=== PATIENT | female | born 1940 | race Two or more races ===

== ENCOUNTER 2018-01-30 08:20 | Emergency (ER) | payer MEDICAID ==
[~2018-01-30] VITALS: Ht 165.1 cm; Wt 55.8 kg
--- NOTE | 2018-01-30 11:16 | NUR ---
CALLED [facility] FOR TRANSPORT ETA 30MIN
--- NOTE | 2018-01-30 12:17 | NUR ---
[facility]
[2018-01-30 12:20] VITALS: BP 123/67
== END 2018-01-30 12:21 | disposition home or self-care (01) ==
LOC: ER 08:20
DX: S00.12XA Contusion of left eyelid and periocular area, initial encounter (principal); I25.10 Atherosclerotic heart disease of native coronary artery without angina pectoris; I13.0 Hypertensive heart and chronic kidney disease with heart failure and stage 1 through stage 4 chronic kidney disease, or unspecified chronic kidney disease; N18.9 Chronic kidney disease, unspecified; R41.82 Altered mental status, unspecified; F31.9 Bipolar disorder, unspecified; E87.6 Hypokalemia; G47.00 Insomnia, unspecified; W18.30XA Fall on same level, unspecified, initial encounter; Y92.002 Bathroom of unspecified non-institutional (private) residence as the place of occurrence of the external cause; Y93.89 Activity, other specified; Y99.8 Other external cause status
CPT/HCPCS: 70450; 70486; 71045; 72125; 72170; 73630; 99284; A4606; Z7610

== ENCOUNTER 2022-10-27 00:44 | Emergency (ER) | payer MEDICAID, OTHER ==
[~2022-10-27] VITALS: Ht 162.6 cm; Wt 72.6 kg
[2022-10-27 00:51] VITALS: BP 133/79
--- NOTE | 2022-10-27 00:57 | NUR ---
[facility] FROM [facility] C/O "DIFFICULT TO WAKE UP" PT WAKES UP TO PAIN STIMULI PT A/OX.1 AT BASELINE. TOLERATING R/A WELL WITH NO RESP DISTRESS. SAFETY MEASURES IN PLACE.
--- NOTE | 2022-10-27 00:58 | NUR ---
EMT AT PT'S BEDSIDE FOR EKG
--- NOTE | 2022-10-27 01:10 | NUR ---
PATIENT SUPPORT ASSISTANT AT PT'S BEDSIDE
--- NOTE | 2022-10-27 01:14 | NUR ---
[employer] M[employer] OPERATOR AT PT'S BEDSIDE
[2022-10-27 01:22] LABS: BASOPHILS % (AUTO) 0.6 % (0.0-2.0); HEMATOCRIT 37 % (33-45); LYMPHOCYTES % (AUTO) 29.3 % (20.0-44.0); MEAN CORPUSCULAR HGB CONC 33 g/dl (31.0-36.0); MEAN CORPUSCULAR VOLUME 91 fL (82-100); MONOCYTES # (AUTO) 0.7 K/uL (0.1-1.30); MONOCYTES % (AUTO) 10.3 % (2.0-12.0); NEUTROPHILS # (AUTO) 3.9 K/uL (1.8-8.9); NEUTROPHILS % (AUTO) 56.8 % (43.0-81.0); PLATELET COUNT (AUTO) 265 K/uL (150-450); RED BLOOD CELL COUNT(AUTO) 4.02 MIL/uL (4.0-5.2); WHITE BLOOD COUNT (AUTO) 6.9 K/uL (4.3-11.0)
[2022-10-27 01:32] LABS: CALCIUM, SERUM 8.8 mg/dL (8.5-10.1); CREATININE 0.9 mg/dL (0.6-1.3); POTASSIUM 4.2 mmol/L (3.5-5.1)
[2022-10-27 01:39] LABS: ALBUMIN 2.8 g/dL (3.4-5.0); BILIRUBIN,TOTAL 0.2 mg/dL (0.2-1.0); TOTAL PROTEIN, SERUM 7.1 g/dL (6.4-8.2)
--- NOTE | 2022-10-27 01:42 | NUR ---
URINE COLLECTED AND SENT TO LAB
[2022-10-27 02:24] LABS: BILIRUBIN,URINE NEGATIVE (NEGATIVE); COLOR,URINE YELLOW (YELLOW); LEUKOCYTE ESTERASE ,URINE TRACE (NEGATIVE); NITRITE, URINE NEGATIVE (NEGATIVE); PROTEIN,URINE NEGATIVE (NEGATIVE); UGLUCOSE NEGATIVE (NEGATIVE); UROBILINOGEN,URINE 0.2 EU/dL (0.2)
[2022-10-27 02:39] LABS: BACTERIA,URINE Rare /HPF (None Seen); SQUAMOUS EPITHELIAL CELL,UR Few /HPF (None Seen); WBC,URINE 0-2 /HPF (0-3)
--- NOTE | 2022-10-27 03:13 | NUR ---
[employer] FERRY DRIVER AT PT'S BEDSIDE
--- NOTE | 2022-10-27 04:25 | NUR ---
REPORT GIVEN TO DONATO SONG [facility]
--- NOTE | 2022-10-27 04:25 | NUR ---
[facility] CALLED FOR BLS GOING BACK TO SNF PER [facility] ETA 30 MIN
--- NOTE | 2022-10-27 04:47 | NUR ---
REPORT GIVEN TO [facility] UNIT FOR SY[facility]; [facility] EMT AT PT'S BEDSIDE FOR [facility] TO TRANSFER TO [facility].
== END 2022-10-27 04:59 ==
LOC: ER 01:00
DX: F11.90 Opioid use, unspecified, uncomplicated (principal); I10 Essential (primary) hypertension; I25.10 Atherosclerotic heart disease of native coronary artery without angina pectoris; J44.9 Chronic obstructive pulmonary disease, unspecified; K21.9 Gastro-esophageal reflux disease without esophagitis; F30.9 Manic episode, unspecified; F20.9 Schizophrenia, unspecified; E87.6 Hypokalemia
CPT/HCPCS: 36415; 71045-TC; 80053-TC; 81001; 84484-TC; 85025-TC

== ENCOUNTER 2023-07-11 17:14 | Emergency (ER) | payer OTHER ==
[~2023-07-11] VITALS: Ht 152.4 cm; Wt 61.7 kg
[2023-07-11 18:45] VITALS: BP 153/84; TEMP 98; O2SAT 97
== END 2023-07-11 18:46 ==
LOC: ER 17:17
DX: Z00.00 Encounter for general adult medical examination without abnormal findings (principal); F03.90 Unspecified dementia, unspecified severity, without behavioral disturbance, psychotic disturbance, mood disturbance, and anxiety; I11.0 Hypertensive heart disease with heart failure; I50.9 Heart failure, unspecified; J44.9 Chronic obstructive pulmonary disease, unspecified; K21.9 Gastro-esophageal reflux disease without esophagitis; F32.9 Major depressive disorder, single episode, unspecified; F20.9 Schizophrenia, unspecified

== ENCOUNTER 2023-11-10 06:05 | Inpatient (IN) | payer OTHER ==
[2023-11-10] VITALS (15 sets, daily range): BP systolic 103–199; BP diastolic 67–120; TEMP 97.4–97.7; O2SAT 85–99
[~2023-11-10] VITALS: Ht 154.9 cm; Wt 44.5 kg
[2023-11-10] MEDS ORDERED: PIPERACI/TAZO 3.375GM/D5W 50ML PB IV ONE (06:40)
[2023-11-10] MEDS: PIPERACILLIN /TAZOBACTAM 3.375 G in IV D5W 50 ML IV ONE (06:42)
[2023-11-10] MEDS: IV NS 0.9% 1,000 ML BAG IV ONE (06:42)
[2023-11-10 06:54] LABS: ABG BASE EXCESS 2.9 mmol/L; ABG OXYGEN SATURATION 96.6 % (92.0-98.5); ABG PCO2 51.4 mmHg (35.0-45.0); ABG PH 7.372 (7.350-7.450); ABG PO2 92.4 mmHg (75.0-100.0); ABG TOTAL HEMOGLOBIN 13.5 G/dL (12.0-16.0); MetHb 0.3 % (0.0-1.5); O2Hb 96.3 % (94.0-97.0); SITE, ABG Right Brachial; VENT MODE, BG Nasal Cannula
[2023-11-10 07:58] LABS: APPEARANCE,URINE SLIGHTLY CLOUDY (CLEAR); BILIRUBIN,URINE NEGATIVE (NEGATIVE); BLOOD, URINE TRACE-INTA Ery/uL (NEGATIVE); COLOR,URINE YELLOW (YELLOW); KETONES,URINE TRACE mg/dL (NEGATIVE); LEUKOCYTE ESTERASE ,URINE NEGATIVE (NEGATIVE); NITRITE, URINE NEGATIVE (NEGATIVE); PROTEIN,URINE 1+ mg/dl (NEGATIVE); UGLUCOSE NEGATIVE (NEGATIVE)
[2023-11-10 08:01] LABS: BASOPHILS % (AUTO) 0.2 % (0.0-2.0); HEMATOCRIT 35 % (33-45); HEMOGLOBIN 11.6 g/dL (11.5-14.8); LYMPHOCYTES # (AUTO) 0.8 K/uL (0.8-4.8); LYMPHOCYTES % (AUTO) 7.3 % (20.0-44.0); MEAN CORPUSCULAR HEMOGLOBIN 28 PG (26.0-33.0); MEAN CORPUSCULAR HGB CONC 33 g/dl (31.0-36.0); MEAN CORPUSCULAR VOLUME 86 fL (82-100); MONOCYTES # (AUTO) 1.2 K/uL (0.1-1.30); MONOCYTES % (AUTO) 10.2 % (2.0-12.0); NEUTROPHILS # (AUTO) 9.5 K/uL (1.8-8.9); NEUTROPHILS % (AUTO) 82.3 % (43.0-81.0); PLATELET COUNT (AUTO) 196 K/uL (150-450); RED BLOOD CELL COUNT(AUTO) 4.12 MIL/uL (4.0-5.2); RED CELL DISTRIBUTION WIDTH 17.5 % (11.5-15.0); WHITE BLOOD COUNT (AUTO) 11.5 K/uL (4.3-11.0)
[2023-11-10] MEDS ORDERED: ACETAMINOPHEN 650 MG/SUPP.RECT RC ONE (08:02)
[2023-11-10 08:12] LABS: ADD URINE CULTURE YES; BACTERIA,URINE 1+ /HPF (None Seen); TRICHOMONAS,URINE None Seen /HPF (None Seen); YEAST,URINE None Seen /HPF (None Seen)
[2023-11-10 08:13] LABS: FINE GRANULAR CASTS,URINE Few /LPF (None Seen); MUCUS,URINE Many /LPF (None Seen)
[2023-11-10] MEDS: ACETAMINOPHEN 650 MG/SUPP.RECT RC ONE (08:13)
[2023-11-10 08:14] LABS: INR 1.19 (0.91-1.10); PARTIAL THROMBOPLASTIN TIME 33.4 SEC (24.3-34.3); PROTHROMBIN TIME 12.5 SECS (9.2-11.1)
[2023-11-10] MEDS ORDERED: SENN-18 PO (08:26)
[2023-11-10] MEDS ORDERED: DIVA125C5 PO (08:26)
[2023-11-10] MEDS ORDERED: NITR0.4T48 SL (08:26)
[2023-11-10] MEDS ORDERED: FAMO20TA8 PO (08:26)
[2023-11-10] MEDS ORDERED: QUET25TA PO (08:26)
[2023-11-10] MEDS ORDERED: MONT10TA22 PO (08:26)
[2023-11-10] MEDS ORDERED: CHOL100034 PO (08:26)
[2023-11-10] MEDS ORDERED: METO100T14 PO (08:26)
[2023-11-10] MEDS ORDERED: APIX2.5T PO (08:26)
[2023-11-10] MEDS ORDERED: ACET-868 PO (08:26)
[2023-11-10] MEDS ORDERED: ACET-2605 PO (08:26)
[2023-11-10] MEDS ORDERED: DICL100G34 TP (08:26)
[2023-11-10] MEDS ORDERED: HYDR-4209 PO (08:26)
[2023-11-10] MEDS ORDERED: ATOR10TA PO (08:26)
[2023-11-10] MEDS ORDERED: ISOS30TA9 PO (08:26)
[2023-11-10 08:28] LABS: ALANINE AMINOTRANSFERASE 13 U/L (12-78); ALBUMIN 2.3 g/dL (3.4-5.0); ALKALINE PHOSPHATASE 69 U/L (46-116); ASPARTATE AMINOTRANSFERASE 21 U/L (15-37); BILIRUBIN,DIRECT 0.2 mg/dL (0.0-0.2); BILIRUBIN,TOTAL 0.3 mg/dL (0.2-1.0); CALCIUM, SERUM 7.6 mg/dL (8.5-10.1); CARBON DIOXIDE 29 mmol/L (21-32); CHLORIDE 97 mmol/L (98-107); CREATININE 0.8 mg/dL (0.6-1.3); GLUCOSE 151 mg/dL (74-106); POTASSIUM 3.6 mmol/L (3.5-5.1); SODIUM SERUM 134 mmol/L (136-145); TOTAL PROTEIN, SERUM 6.6 g/dL (6.4-8.2); UREA NITROGEN, BLOOD 15 mg/dL (7-18)
[2023-11-10 08:34] LABS: LACTIC ACID 2.3 mmol/L (0.4-2.0)
[2023-11-10 11:11] LABS: ABG BASE EXCESS 0.3 mmol/L; ABG OXYGEN SATURATION 93.1 % (92.0-98.5); ABG PCO2 76.3 mmHg (35.0-45.0); ABG PH 7.216 (7.350-7.450); ABG PO2 78.8 mmHg (75.0-100.0); ABG TOTAL HEMOGLOBIN 13.8 G/dL (12.0-16.0); COHb 0.1 % (0.5-1.5); MetHb 0.2 % (0.0-1.5); O2Hb 92.8 % (94.0-97.0); SITE, ABG Right Radial; VENT MODE, BG BIPAP 15/4 @ 40%
[2023-11-10] MEDS ORDERED: ONDANSETRON HCL/PF 4 MG/2 ML VIAL IVP PRN (15:00)
[2023-11-10] MEDS ORDERED: MAGNESIUM HYDROXIDE 30 ML UDC PO PRN (15:00)
[2023-11-10] MEDS: ALBUTEROL FS 2.5 MG/3 ML VIAL.NEB NEB SCH (16:00)
[2023-11-10] MEDS ORDERED: ALBUTEROL FS 2.5 MG/3 ML VIAL.NEB ONE (16:12)
[2023-11-10 16:14] LABS: ABG BASE EXCESS 2.3 mmol/L; ABG OXYGEN SATURATION 89.3 % (92.0-98.5); ABG PH 7.299 (7.350-7.450); COHb 0.3 % (0.5-1.5); MetHb 0.3 % (0.0-1.5); O2Hb 88.8 % (94.0-97.0); SITE, ABG Left Radial; VENT MODE, BG 2LPM NASAL CANNULA
[2023-11-10] MEDS: APIXABAN 2.5 MG TABLET PO SCH (17:00)
[2023-11-10] MEDS: QUETIAPINE FUMARATE 25 MG TABLET PO SCH (17:00)
[2023-11-10] MEDS ORDERED: hydrOXYzine PAMOATE 50 MG CAPSULE PO PRN (17:30)
[2023-11-10] MEDS: IV NS 0.9% 1,000 ML IV PRN (17:33)
[2023-11-10] MEDS: LEVOFLOXACIN 750 MG /D5W 150ML 750 MG in PREMIX 1 EA IV SCH (17:40)
[2023-11-10] MEDS: methylPREDNISolone SOD SUCC 40 MG/ML VIAL IV SCH (17:44)
[2023-11-10] MEDS: IPRATROPIUM NEB FS 0.5 MG/2.5 ML AMPUL.NEB NEB SCH (19:49)
[2023-11-10] MEDS: DIVALPROEX SODIUM 125 MG CAP.SPRINK PO SCH (20:01)
[2023-11-10] MEDS: ATORVASTATIN 10 MG TABLET PO SCH (20:01)
[2023-11-10] MEDS: MONTELUKAST SODIUM (10MG) 10 MG TABLET PO SCH (20:02)
[2023-11-10] MEDS: SENNOSIDES 8.6 MG TABLET PO SCH (20:02)
[2023-11-10] MEDS: hydrALAZINE HCL IV 20 MG VIAL IV PRN (23:05)
[2023-11-10] MEDS: METOPROLOL TARTRATE INJ 5 MG/5 ML AMPUL IVP ONE (23:43)
[2023-11-11] VITALS (16 sets, daily range): BP systolic 98–155; BP diastolic 49–106; TEMP 97.5–98.9; O2SAT 88–98
[2023-11-11 05:06] LABS: HEMATOCRIT 39 % (33-45); HEMOGLOBIN 12.6 g/dL (11.5-14.8); LYMPHOCYTES # (AUTO) 0.7 K/uL (0.8-4.8); LYMPHOCYTES % (AUTO) 4.7 % (20.0-44.0); MEAN CORPUSCULAR HEMOGLOBIN 28 PG (26.0-33.0); MEAN CORPUSCULAR HGB CONC 33 g/dl (31.0-36.0); MEAN CORPUSCULAR VOLUME 87 fL (82-100); MONOCYTES # (AUTO) 0.4 K/uL (0.1-1.30); MONOCYTES % (AUTO) 2.9 % (2.0-12.0); NEUTROPHILS % (AUTO) 92.4 % (43.0-81.0); PLATELET COUNT (AUTO) 204 K/uL (150-450); RED BLOOD CELL COUNT(AUTO) 4.46 MIL/uL (4.0-5.2); RED CELL DISTRIBUTION WIDTH 17.5 % (11.5-15.0); WHITE BLOOD COUNT (AUTO) 15.1 K/uL (4.3-11.0)
[2023-11-11] MEDS: LORAZEPAM INJ 2 MG/ML VIAL IV ONE ×2 (05:35→05:50)
[2023-11-11 06:04] LABS: CALCIUM, SERUM 8.1 mg/dL (8.5-10.1); CREATININE 0.7 mg/dL (0.6-1.3); MAGNESIUM 1.8 mg/dL (1.8-2.4); PHOSPHORUS 3.3 mg/dL (2.5-4.9); POTASSIUM 3.8 mmol/L (3.5-5.1)
[2023-11-11 06:21] LABS: THYROID STIMULATING HORMONE 0.431 uIU/mL (0.358-3.74)
[2023-11-11] MEDS: PANTOPRAZOLE 40 MG TABLET.DR PO SCH (07:30)
[2023-11-11] MEDS: CHOLECALCIFEROL 1,000 UNIT TABLET (VIT D3) PO SCH (08:47)
[2023-11-11 09:03] LABS: ABG OXYGEN SATURATION 96.9 % (92.0-98.5); ABG PCO2 62.5 mmHg (35.0-45.0); ABG PO2 95.5 mmHg (75.0-100.0); ABG TOTAL HEMOGLOBIN 13.7 G/dL (12.0-16.0); AaDO2 59.5 mmHg; COHb 0.7 % (0.5-1.5); MetHb 0.2 % (0.0-1.5); SITE, ABG Left Radial; VENT MODE, BG 3LPM NASAL CANNULA
[2023-11-11] MEDS: ENOXAPARIN SODIUM 40 MG/0.4 ML DISP.SYRIN SQ SCH (12:27)
[2023-11-11] MEDS: ALBUTEROL HALF STRENGTH 1.25 MG/3 ML VIAL.NEB NEB SCH (14:02)
[2023-11-11] MEDS: IV D5/ 0.9% NACL 1,000 ML IV PRN (16:54)
[2023-11-11] MEDS: METOPROLOL TARTRATE INJ 5 MG/5 ML AMPUL IVP ONE (20:21)
[2023-11-12] VITALS (13 sets, daily range): BP systolic 103–151; BP diastolic 55–106; TEMP 97.5–98.5; O2SAT 91–100
[2023-11-12] MEDS: METOPROLOL TARTRATE INJ 5 MG/5 ML AMPUL IVP ONE (02:39)
[2023-11-12 04:57] LABS: BASOPHILS % (AUTO) 0.1 % (0.0-2.0); HEMATOCRIT 34 % (33-45); HEMOGLOBIN 11.2 g/dL (11.5-14.8); LYMPHOCYTES # (AUTO) 0.4 K/uL (0.8-4.8); LYMPHOCYTES % (AUTO) 2.9 % (20.0-44.0); MEAN CORPUSCULAR HEMOGLOBIN 29 PG (26.0-33.0); MEAN CORPUSCULAR HGB CONC 33 g/dl (31.0-36.0); MEAN CORPUSCULAR VOLUME 87 fL (82-100); MONOCYTES # (AUTO) 0.7 K/uL (0.1-1.30); MONOCYTES % (AUTO) 4.4 % (2.0-12.0); NEUTROPHILS # (AUTO) 14.1 K/uL (1.8-8.9); NEUTROPHILS % (AUTO) 92.6 % (43.0-81.0); PLATELET COUNT (AUTO) 182 K/uL (150-450); RED BLOOD CELL COUNT(AUTO) 3.88 MIL/uL (4.0-5.2); RED CELL DISTRIBUTION WIDTH 17.7 % (11.5-15.0); WHITE BLOOD COUNT (AUTO) 15.2 K/uL (4.3-11.0)
[2023-11-12 05:10] LABS: CALCIUM, SERUM 7.8 mg/dL (8.5-10.1); CREATININE 0.8 mg/dL (0.6-1.3); MAGNESIUM 2.2 mg/dL (1.8-2.4); PHOSPHORUS 2.1 mg/dL (2.5-4.9); POTASSIUM 3.7 mmol/L (3.5-5.1)
[2023-11-12] MEDS: PANTOPRAZOLE 40 MG VIAL IV SCH (08:44)
[2023-11-12 09:29] LABS: ABG BASE EXCESS 1.2 mmol/L; ABG OXYGEN SATURATION 93.8 % (92.0-98.5); ABG PCO2 48.6 mmHg (35.0-45.0); ABG PH 7.365 (7.350-7.450); ABG TOTAL HEMOGLOBIN 12.6 G/dL (12.0-16.0); AaDO2 74.3 mmHg; COHb 0.7 % (0.5-1.5); MetHb 0.1 % (0.0-1.5); SITE, ABG Right Brachial; VENT MODE, BG nasal cannula
[2023-11-12] MEDS: FUROSEMIDE 40 MG/4 ML VIAL IV SCH (10:58)
[2023-11-13] VITALS (12 sets, daily range): BP systolic 142–173; BP diastolic 73–86; TEMP 97.5–101.5; O2SAT 90–99
[2023-11-13] MEDS: hydrOXYzine PAMOATE 25 MG CAPSULE PO PRN (06:41)
[2023-11-13 07:29] LABS: BASOPHILS % (AUTO) 0.1 % (0.0-2.0); HEMATOCRIT 35 % (33-45); HEMOGLOBIN 11.5 g/dL (11.5-14.8); LYMPHOCYTES # (AUTO) 0.7 K/uL (0.8-4.8); LYMPHOCYTES % (AUTO) 5.2 % (20.0-44.0); MEAN CORPUSCULAR HEMOGLOBIN 29 PG (26.0-33.0); MEAN CORPUSCULAR HGB CONC 33 g/dl (31.0-36.0); MEAN CORPUSCULAR VOLUME 86 fL (82-100); MONOCYTES # (AUTO) 0.7 K/uL (0.1-1.30); MONOCYTES % (AUTO) 4.7 % (2.0-12.0); NEUTROPHILS # (AUTO) 12.7 K/uL (1.8-8.9); PLATELET COUNT (AUTO) 215 K/uL (150-450); RED BLOOD CELL COUNT(AUTO) 4.03 MIL/uL (4.0-5.2); RED CELL DISTRIBUTION WIDTH 18.3 % (11.5-15.0); WHITE BLOOD COUNT (AUTO) 14.1 K/uL (4.3-11.0)
[2023-11-13 08:38] LABS: CALCIUM, SERUM 7.9 mg/dL (8.5-10.1); CARBON DIOXIDE 32 mmol/L (21-32); CHLORIDE 101 mmol/L (98-107); CREATININE 0.9 mg/dL (0.6-1.3); GLUCOSE 113 mg/dL (74-106); MAGNESIUM 2.2 mg/dL (1.8-2.4); PHOSPHORUS 2.1 mg/dL (2.5-4.9); POTASSIUM 3.9 mmol/L (3.5-5.1); SODIUM SERUM 138 mmol/L (136-145); UREA NITROGEN, BLOOD 34 mg/dL (7-18)
[2023-11-13] MEDS: PANTOPRAZOLE 40 MG TABLET.DR PO SCH (09:00)
[2023-11-13] MEDS: K PHOS NEUTRAL 250 MG TABLET PO ONE (16:05)
[2023-11-13] MEDS: ACETAMINOPHEN 325 MG TABLET PO PRN (17:55)
[2023-11-14] VITALS (11 sets, daily range): BP systolic 142–162; BP diastolic 59–63; TEMP 97.3–98.1; O2SAT 94–99
[2023-11-14 07:10] LABS: BASOPHILS % (AUTO) 0.2 % (0.0-2.0); HEMATOCRIT 36 % (33-45); LYMPHOCYTES # (AUTO) 0.6 K/uL (0.8-4.8); LYMPHOCYTES % (AUTO) 7.5 % (20.0-44.0); MEAN CORPUSCULAR HEMOGLOBIN 28 PG (26.0-33.0); MEAN CORPUSCULAR HGB CONC 33 g/dl (31.0-36.0); MEAN CORPUSCULAR VOLUME 86 fL (82-100); MONOCYTES # (AUTO) 0.7 K/uL (0.1-1.30); MONOCYTES % (AUTO) 9.2 % (2.0-12.0); NEUTROPHILS # (AUTO) 6.5 K/uL (1.8-8.9); NEUTROPHILS % (AUTO) 83.1 % (43.0-81.0); PLATELET COUNT (AUTO) 185 K/uL (150-450); RED BLOOD CELL COUNT(AUTO) 4.23 MIL/uL (4.0-5.2); RED CELL DISTRIBUTION WIDTH 17.9 % (11.5-15.0); WHITE BLOOD COUNT (AUTO) 7.8 K/uL (4.3-11.0)
[2023-11-14 07:11] LABS: CALCIUM, SERUM 8.6 mg/dL (8.5-10.1); CREATININE 0.9 mg/dL (0.6-1.3); MAGNESIUM 2.3 mg/dL (1.8-2.4); PHOSPHORUS 2.9 mg/dL (2.5-4.9); POTASSIUM 4.1 mmol/L (3.5-5.1)
[2023-11-14] MEDS: methylPREDNISolone SOD SUCC 40 MG/ML VIAL IV SCH (08:21)
[2023-11-14 15:13] LABS: BAND % (MANUAL) 2 % (0.0-5.0); LYMPHOCYTES % (MANUAL) 5 % (16-48); MONOCYTES % (MANUAL) 7 % (0-11.0); NEUTROPHILS % (MANUAL) 86 (42-76)
[2023-11-14 15:14] LABS: ANISOCYTOSIS 1+; PLATELET ESTIMATE ADEQUATE
[2023-11-14] MEDS: ENSURE ENLIVE CHOC 237 ML CAN PO SCH (15:54)
[2023-11-15] MEDS ORDERED: methylPREDNISolone SOD SUCC 40 MG/ML VIAL IV SCH (09:00)
== END 2023-11-14 19:16 | DRG 720 ==
LOC: ER 06:15 → TRANSITION 14:23 → ICU 15:56 → MEDSG1 11-12 13:27
PROVIDERS: ADMIT Nurse Practitioner Family; ATTEND Student in an Organized Health Care Education/Training Program
PROC: 05HC33Z Insertion of Infusion Device into Left Basilic Vein, Percutaneous Approach (ICD-10-PCS; principal; 2023-11-10)
PROC: 5A09357 Assistance with Respiratory Ventilation, Less than 24 Consecutive Hours, Continuous Positive Airway Pressure (ICD-10-PCS; 2023-11-10)
PROC: B54NZZA Ultrasonography of Left Upper Extremity Veins, Guidance (ICD-10-PCS; 2023-11-10)
DX: A41.9 Sepsis, unspecified organism (principal); G93.41 Metabolic encephalopathy; J96.01 Acute respiratory failure with hypoxia; J96.02 Acute respiratory failure with hypercapnia; E44.0 Moderate protein-calorie malnutrition; E87.20 Acidosis, unspecified; E87.1 Hypo-osmolality and hyponatremia; I48.91 Unspecified atrial fibrillation; E88.09 Other disorders of plasma-protein metabolism, not elsewhere classified; R65.20 Severe sepsis without septic shock; J44.0 Chronic obstructive pulmonary disease with (acute) lower respiratory infection; J44.1 Chronic obstructive pulmonary disease with (acute) exacerbation; E78.5 Hyperlipidemia, unspecified; M81.0 Age-related osteoporosis without current pathological fracture; K21.9 Gastro-esophageal reflux disease without esophagitis; N39.0 Urinary tract infection, site not specified; Z86.73 Personal history of transient ischemic attack (TIA), and cerebral infarction without residual deficits; Z20.822 Contact with and (suspected) exposure to COVID-19; G62.9 Polyneuropathy, unspecified; F03.90 Unspecified dementia, unspecified severity, without behavioral disturbance, psychotic disturbance, mood disturbance, and anxiety; I50.9 Heart failure, unspecified; I11.0 Hypertensive heart disease with heart failure; F31.9 Bipolar disorder, unspecified; Z66 Do not resuscitate; J20.9 Acute bronchitis, unspecified; I25.10 Atherosclerotic heart disease of native coronary artery without angina pectoris; R13.10 Dysphagia, unspecified; F20.9 Schizophrenia, unspecified; Z68.1 Body mass index [BMI] 19.9 or less, adult
CPT/HCPCS: 31720; 36410; 36415; 36600; 71045-TC; 80048-TC; 80076-TC; 81001; 82803-TC; 83605-TC; 83735-TC; 84100-TC; 84443-TC; 84484-TC; 85025-TC; 85730-TC; 87040-TC; 87081-TC; 87086-TC; 92526; 92611-TC; 93307-TC; 94660; 94760-TC; 94762-TC; 94799-TC; A4216; A4223; C9113; G0378; J0360; J1650; J1940; J1956; J2060; J2543; J2919; J3490; J7030; J7042; J7050; J7060; J7070; Q0177